=== PATIENT | male | born 2000 | race Caucasian/White ===

== ENCOUNTER → 2024-04-28 | Emergency (ER) | payer OTHER ==
[~2024-04-28] VITALS: Ht 167.6 cm; Wt 68.6 kg
[2024-04-28 17:48] VITALS: BP 127/75; PULSE 78; RESP 18; O2SAT 99
[2024-04-28 19:52] VITALS: TEMP 97.3
== END | disposition home or self-care (01) ==
LOC: ER 17:15
DX: S61.214A Laceration without foreign body of right ring finger without damage to nail, initial encounter (principal); Z88.1 Allergy status to other antibiotic agents; W26.0XXA Contact with knife, initial encounter; Y93.89 Activity, other specified; Y92.89 Other specified places as the place of occurrence of the external cause; Y99.8 Other external cause status
CPT/HCPCS: 99282; 99284; A6258; A6410